=== PATIENT | male | born 2000 ===

== ENCOUNTER 2019-09-03 02:51 | Emergency (ER) | payer OTHER ==
[2019-09-03] MEDS ORDERED: Dexamethasone IV* 4 MG/ML 1 ML (4 MG) PO ONE (03:14)
[2019-09-03] MEDS ORDERED: Morphine 10 MG/ML VIAL (1 ml) IV PRN (03:14)
[2019-09-03] MEDS ORDERED: Morphine 4 MG/ML VIAL (1 ml) 4 MG/ML VIAL IV ONE (03:14)
[2019-09-03] MEDS ORDERED: NS 0.9% 1000 ML** 2,000 ML IV ONE (03:14)
[2019-09-03] MEDS ORDERED: Ondansetron INJ* 2 MG/ML VIAL IV ONE (03:17)
--- NOTE | 2019-09-03 03:18 | ED ---
Back Pain - HPI Summary HPI Summary: This patient is a 19 year old M presenting to ED with a chief complaint of lower left back pain since waking up this morning. Patient woke up with pain described as soreness that has worsened through the day. He states the pain in the lower left back radiates to the hip and stomach and down the left thigh. 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 Patient took 1000mg Tylenol at 1700 and 600mg Ibuprofen at 2000, but they did not help. The patient rates the pain 7/10 in severity. Symptoms aggravated by nothing. Symptoms alleviated by nothing. Patient reports tingling in the legs, nausea. Patient denies numbness/tingling in the groin, bowel/bladder incontinence. - History of Current Complaint Chief Complaint: EDBackInjuryPain Stated Complaint: FLANK PAIN PER PT Time Seen by Provider: 09/03/19 03:09 Hx Obtained From: Patient Onset/Duration: Gradual Onset, Lasting Hours - Since waking up this morning, Still Present, Worse Since Onset/Duration: Started Hours Ago - Since waking up this morning, Atraumatic, Still Present, Worse Since Timing: Constant, Lasting Hours - Since waking up this morning Back Pain Location: Is Discrete @ - Left lower back, Radiates To - Left hip and left thigh Severity Initially: Moderate Severity Currently: Moderate Pain Intensity: 7 Pain Scale Used: 0-10 Numeric Aggravating Symptom(s): Nothing Alleviating Symptom(s): Nothing Associated Signs And Symptoms: Positive: Tingling - In legs, Other - Nausea. Negative: Numbness, Bladder Incontinence, Bowel Incontinence - Allergies/Home Medications Allergies/Adverse Reactions: Allergies Allergy/AdvReac Type Severity Reaction Status Date / Time No Known Allergies Allergy Verified 09/03/19 03:08 PMH/Surg Hx/FS Hx/Imm Hx Musculoskeletal History: Denies: Hx Back Problems Sensory History: Denies: Hx Legally Blind, Hx Deafness Opthamlomology History: Denies: Hx Legally Blind EENT History: Denies: Hx Deafness - Surgical History Surgery Procedure, Year, and Place: Binger teeth Infectious Disease History: No Infectious Disease History: Denies: Traveled Outside the [place] in Last 30 Days - Family History Known Family History: Positive: Non-Contributory - Social History Alcohol Use: Weekly Hx Substance Use: Yes Substance Use Type: Reports: Marijuana Substance Use Comment - Amount & Last Used: weekly Hx Tobacco Use: Yes Smoking Status (MU): Current Some Day Smoker Review of Systems Positive: Nausea Genitourinary: Negative - numbness/tingling in the groin, bowel/bladder incontinence Musculoskeletal: Other - Left lower back pain radiating to hip and thigh, tingling in the legs All Other Systems Reviewed And Are Negative: Yes Physical Exam - Summary Physical Exam Summary: Appearance: very tall and fit-appearing young man, lying in stretcher in obvious pain, guarding his back Skin: Warm, dry, no obvious rash Eyes: sclera anicteric, no conjunctival pallor ENT: mucous membranes moist Neck: deferred Respiratory: No signs of respiratory distress Cardiovascular: Appears well perfused, pulses are nml Abdomen: deferred Musculoskeletal: Focal tenderness in the soft tissue paravertebral musculature in the left lower back with palpable spasm, extremities appear normal, there is no clonus at his patella and strength is preserved as is sensation to light touch. Neurological: Awake and alert, mentation is normal, speech is fluent and appropriate Psychiatric: affect is normal, does not appear anxious or depressed Triage Information Reviewed: Yes Vital Signs On Initial Exam: Initial Vitals Temp Pulse Resp BP Pulse Ox 97.8 F 57 18 134/61 100 09/03/19 02:52 09/03/19 02:52 09/03/19 02:52 09/03/19 02:52 09/03/19 02:52 Vital Signs Reviewed: Yes Procedures - Sedation Patient Received Moderate/Deep Sedation with Procedure: No Diagnostics - Vital Signs Vital Signs Temp Pulse Resp BP Pulse Ox 09/03/19 02:52 97.8 F 57 18 134/61 100 - Laboratory Lab Statement: Any lab studies that have been ordered have been reviewed, and results considered in the medical decision making process. Re-Evaluation - Re-Evaluation First Eval Re-Evaluation Time: 05:35 Change: Improved Comment: Patient reports feeling better. Discussed results with patient. Patient will be discharged home with dx of back pain and sciatica. Patient understands and agrees with this plan. Back Pain Course/Dx - Course Course Of Treatment: This patient is a 19 year old M presenting to ED with a chief complaint of lower left back pain since waking up this morning. In the ED course, patient received Decadron, morphine, fluids, and Zofran. UA revealed trace urine ketones. Patient reports feeling better with treatment. Discussed results with patient. Patient will be discharged home with dx of back pain and sciatica. Patient understands and agrees with this plan. - Diagnoses Provider Diagnoses: Back pain, Sciatica Discharge ED - Sign-Out/Discharge Documenting (check all that apply): Patient Departure - Discharge - Discharge Plan Condition: Improved Disposition: HOME Prescriptions: Dexamethasone TAB* [Decadron TAB*] 6 mg PO DAILY #4 tab oxyCODONE/Acetamin 5/325 MG* [Percocet 5/325 TAB*] 2 tab PO Q4H PRN #12 tab MDD 6 PRN Reason: Pain - Severe Patient Education Materials: Sciatica (ED), Acute Low Back Pain (ED) Referrals: [facility] [Outside] Additional Instructions: I prescribed some opioid pain medication for you for the next couple of days if you need it. Try taking OTC pain killers first. Rest for the next week and when you resume your activities do so carefully, listening to your body. - Billing Disposition and Condition Condition: IMPROVED Disposition: Home - Attestation Statements Document Initiated by Torri: Yes Documenting Scribe: Jose Car Provider For Whom Torri is Documenting (Include Credential): Alberto Power MD Scribe Attestation: I, Jose Car, scribed for Alberto Power MD on 09/03/19 at 0634. Scribe Documentation Reviewed: Yes Provider Attestation: The documentation as recorded by the Jose woodall accurately reflects the service I personally performed and the decisions made by me, Alberto Power MD Status of Scribe Document: Viewed
[2019-09-03 05:22] LABS: Urine Appearance Clear; Urine Bilirubin Negative (Negative); Urine Blood Negative (Negative); Urine Color Yellow; Urine Glucose Negative (Negative); Urine Ketones Trace (Negative); Urine Nitrite Negative (Negative); Urine Protein Negative (Negative); Urine Specific Gravity 1.029 (1.010-1.030); Urine Urobilinogen Negative (Negative)
[2019-09-03 05:43] VITALS: BP 133/63
== END 2019-09-03 05:42 | disposition home or self-care (01) ==
LOC: ED 02:51
DX: M54.32 Sciatica, left side (principal); M54.5 Low back pain; Z72.0 Tobacco use
CPT/HCPCS: 81003; 96374; 96375; 99282; J1100; J2270; J2405